=== PATIENT | female | born 1950 | race Caucasian/White ===

== ENCOUNTER 2022-08-27 14:01 | Inpatient (IN) ==
[2022-08-27] MEDS ORDERED: dilTIAZem HCl 5 MG/ML 5 ML VIAL IV STA (14:12)
[2022-08-27] MEDS ORDERED: STAT IV Infusion **Titration per Protocol STA ×2 (14:13→19:41)
[2022-08-27] MEDS ORDERED: dilTIAZem HCL 125 MG in DEXTROSE 5% 100 ML IV SCH ×2 (14:15→19:41)
--- NOTE | 2022-08-27 14:37 | XRay Report ---
XR chest 1V portable HISTORY: 71 years-old Female Dysrhythmia acute chest pain COMPARISON: None TECHNIQUE: Portable AP view of the chest FINDINGS: Cardiac silhouette is enlarged. Left atrial appendage occlusion device. No pneumothorax, pleural effu sedrick, airspace consolidation or overt pulmonary edema. Ill-defined opacity of the left suprahilar patel g is likely secondary to summation density. Degenerative changes of the shoulders and spine. Surgical clips project over the abdominal left upper quadrant. IMPRESSION: No acute process. ACT 112: Negative or not required by law. The above report was generated using voice recognition software. It may contain grammatical, syntax o r spelling errors. Electronically signed by: Brendan Looney M.D. 08/27/2022 2:36 PM
[2022-08-27 14:50] LABS: Basophils # (auto) 0.01 K/uL (0-0.2); Basophils % (auto) 0.2 %; Eosinophils # (auto) 0.01 K/uL (0-0.50); Eosinophils % (auto) 0.2 %; Hematocrit (blood only) 36.1 % (34.1-44.9); Hemoglobin 11.6 g/dl (12.0-16.0); Immature Granulocytes # (auto) 0.01 K/uL (0.00-0.02); Immature Granulocytes % (auto) 0.2 %; Lymphocytes % (auto) 15.4 %; Mean Corpuscular Hgb Conc 32.1 g/dL (32.0-36.0); Mean Corpuscular Volume 96.5 fL (80.0-100.0); Mean Platelet Volume 10.4 fL (9.4-12.3); Monocytes # (auto) 0.13 K/uL (0.24-0.82); Monocytes % (auto) 2.9 %; Neutrophils # (auto) 3.69 K/uL (1.4-6.5); Neutrophils % (auto) 81.1 %; Platelet Count 197 K/uL (130-400); RDW Coefficient of Variation 13.7 % (11.5-14.5); RDW Standard Deviation 48.6 fL (36.4-46.3); Red Blood Count 3.74 M/uL (3.93-5.22); White Blood Count 4.55 K/ul (4.8-10.8)
[2022-08-27 15:03] LABS: Partial Thromboplastin Time 27.3 Seconds (21.0-31.0); Prothrombin Time 10.4 Seconds (9.0-12.0)
[2022-08-27 15:08] LABS: Albumin Globulin Ratio 1.7 (0.9-2); Albumin Level 3.8 gm/dl (3.4-5.0); BUN Creatinine Ratio 17.6 (10-20); Bilirubin,Total 0.3 mg/dl (0.2-1.0); Calcium 8.9 mg/dl (8.5-10.1); Creatinine Clr Calc Pharmacy 72.3 ml/min; Est GFR (African American) 79.9 ml/min; Est GFR (Non-African American) 68.9 ml/min; Globulin 2.3 gm/dl (2.5-4.0); Magnesium 1.9 mg/dl (1.7-2.4); Potassium 4.2 mmol/L (3.5-5.1); Total Protein 6.1 gm/dl (6.0-8.3)
--- NOTE | 2022-08-27 15:10 | Emergency Department Note ---
Impression & Plan Atrial fibrillation with rapid ventricular response, Light-headed feeling, History of coronary artery disease, Presence of Watchman left atrial appendage closure device ED Provider Note Provider: Mejia Noland MD DATE OF SERVICE: 08/27/2022 CHIEF COMPLAINT: A. fib HISTORY OF PRESENT ILLNESS: Patient is a 71-year-old female history of atrial fibrillation status post watchman procedure as well as cardiac disease with prior stenting most care performed at [facility] presenting here today from the [facility] in [facility]. Patient was undergoing an elective hemorrhoidectomy procedure under conscious sedation but no LMA or intubation this afternoon. Patient reportedly had her morning metoprolol is normal and is not on anticoagulation as she had a prior watchman procedure. Anesthesia called me afterwards and informed me the patient was coming here as she had refractory A. fib. Initially showed up in normal sinus rhythm but after the procedure and recovery developed rapid response A. fib. Received several doses of esmolol as well as additional IV metoprolol there without improvement and thus they discussed with the cardiology office in [place] was sent here for further care. Patient states that she not having significant chest pain. She states she does feel a bit winded and lightheaded when she tries to stand. Arrives with a rapid heart rate here in atrial fibrillation. Patient denies significant abdominal pain or nauseousness at this point. REVIEW OF SYSTEMS: A total of 10 review of systems was obtained and negative except as stated above in the HPI. PAST MEDICAL HISTORY: As noted above MEDICATIONS: Reviewed home medication list includes metoprolol twice daily SOCIAL HISTORY: Lives in [facility] at home, former smoker PHYSICAL EXAM: GENERAL: alert and oriented in no acute distress on stretcher Head: normocephalic and atraumatic EYES: No injection, discharge or icterus. NECK: Trachea midline. Supple. ENT: Mucous membranes pink and moist. LUNGS: Airway patent. No retractions. Breath sounds clear HEART: Irregular regular tachycardic rate and rhythm. No chest wall tenderness ABDOMEN: Soft and non-tender, without guarding or rebound. SKIN: Acyanotic, warm, dry, without rashes EXTREMITIES: Without swelling, tenderness or deformity NEUROLOGICAL: No focal deficits. No aphasia. No facial droop or slurred speech. Normal strength and tone in the extremities. Sensation to gross touch normal. EK beats from atrial fibrillation with rapid ventricular response, left bundle branch block present. No clear acute ST segment elevation with left axis. QTC 523. CONTINUOUS CARDIAC MONITORING: was ordered and showed a heart rate of 80s-130s bpm in atrial fibrillation Patient's laboratory studies and imaging reviewed. Differential includes Premature contractions, electrolyte abnormality, cardiac dysrhythmia, thyroid dysfunction, pulmonary embolism, infection, gastrointestinal, as well as other pathologies. IMPRESSION/MEDICAL DECISION MAKING: Patient with symptomatic rapid strep ventricular sponsor atrial fibrillation. Prior watchman as well as CAD history. Received several doses of esmolol as well as IV metoprolol prior to transfer in the postrecovery area after procedure today. Likely stress physiologically from the anesthesia procedure induced this. Has prior watchman so not anticoagulated. Initially here was given a bolus and started on a diltiazem drip for rate control. Some transient hypotension but rate gradually began to improve some while at rest. Chest x-ray was unremarkable without evidence of pulmonary edema. Not hypoxic. Blood work with minimal anemia and slight leukopenia. Again not having active chest pain and doubt ACS. No significant electrolyte abnormalities or renal dys function noted on blood work. Troponin returns not elevated. Attempted to stand at bedside and patient became lightheaded and dizzy and more tachycardic. Continues to have issues with bouts of tachycardia on the diltiazem drip as such discussed with her and daughter further observation overnight for rate control. Probably some component of the A. fib as well as postanesthesia causing symptoms. Patient and daughter are in agreement this plan. DIAGNOSIS: Atrial fibrillation with ventricular response, lightheadedness DISPOSITION: Hospitalist will evaluate Patient was agreeable with this plan. Critical Care I have personally spent 32 minutes of critical care time in the direct management of this patient. This includes bedside care, interpretation of diagnostic studies, and testing, discussion with consultants, patient, and family members, and other required patient management activities. These 32 minutes is in excess of all separately billable procedures. Past Med/Surg History Medical History (Updated 08/27/22 @ 15:24 by Mejia Noland M.D.) Acid reflux Afib DX 2 YR AGO - NO HX CARDIOVERSION Anxiety and depression Arthritis Diarrhea REASON FOR UPCOMING PROCEDURES Encounter for pre-operative examination Hiatal hernia History of blood clots S/P HEART CATH - RIGHT ARM History of colon polyps BENIGN History of GI bleed 2 YR AGO History of heart attack 2 YR AGO - STENT X1 History of kidney stones Nausea REASON FOR UPCOMING PROCEDURES Orthostatic hypotension Stomach pain REASON FOR UPCOMING PROCEDURES Stomach ulcer Tic TIC - LIPS GO FUNNY...FOLLOWS NEURO ALTOONA ? NAME, REASON FOR PRIMIDONE Surgical History History of cardiac cath 2 YR AGO, [place]...STENT X1 ALTOONA History of cholecystectomy History of colonoscopy MOST RECENT WAS TOLD COULD NOT GET UP INTO THE LEFT SIDE (ALTOONA 2 YR AGO) History of gastric surgery GASTRIC SLEEVE History of hysterectomy History of right hip replacement History of surgery WATCHMANS DEVICE PLACEMENT History of surgery FOR HIATAL HERNIA REPAIR History of total right knee replacement Family History Daughter Family history of colon cancer Grandmother Family history of colon cancer Social History Smoking Status: Former smoker Hx Alcohol Use: No Preferred Language: Latvian Communication Ability: Effective Welfare Centre Manager Required: No Beliefs That Will Affect Care: None Current Living Situation: Spouse Current Living Situation Comment: , [facility] GRANDSON Feels Safe at Home: Yes Assistive Devices: Cane, Denture - Upper and Other Allergies Allergies Allergy/AdvReac Type Severity Reaction Status Date / Time codeine Allergy Unknown HEART RACES Verified 04/14/22 08:41 erythromycin base Allergy Unknown Hives Verified 04/14/22 08:41 nitrofurantoin Allergy Unknown ? HIVES Verified 04/14/22 08:41 Home Meds Home Medications Medication Instructions Recorded Confirmed aspirin 81 mg tablet,delayed 81 mg PO QAM 03/18/22 04/14/22 release escitalopram oxalate 20 mg tablet 20 mg PO QAM 03/18/22 04/14/22 (Lexapro) metoprolol tartrate 25 mg tablet 25 mg PO BID 03/18/22 04/14/22 midodrine 5 mg tablet 5 mg PO BID 03/18/22 04/14/22 ondansetron 4 mg disintegrating 4 mg PO UD PRN N/V 03/18/22 04/14/22 tablet primidone 50 mg tablet 50 mg PO BID 03/18/22 04/14/22 rosuvastatin 10 mg tablet 10 mg PO QAM 03/18/22 04/14/22 famotidine 20 mg tablet (Pepcid) 20 mg PO DAILY 04/14/22 04/14/22 lorazepam 0.5 mg tablet 0.5 mg PO TID PRN Anxiety 04/14/22 04/14/22 omeprazole 40 mg capsule,delayed 40 mg PO DAILY 04/14/22 04/14/22 release Results & Data (ED) Vital Signs Vital Signs - 24 hr 08/27/22 14:13 08/27/22 14:13 08/27/22 14:13 Temperature 36.9 C 36.9 C Temperature Source Oral Oral Pulse Rate 113 H Pulse Rate [Finger] 113 H Pulse Rhythm Regular Pulse Rhythm [Finger] Regular Respiratory Rate 18 18 Respiratory Effort / Characteristics Non-Labored Non-Labored Respiratory Depth Normal Normal Respiratory Pattern Regular Regular Blood Pressure 124/88 Blood Pressure [Right Arm] 124/88 Blood Pressure Mean 100 Blood Pressure Mean [Right Arm] 100 Blood Pressure Position Sitting Pulse Oximetry 95 95 Oxygen Delivery Method Room Air Room Air Room Air Sepsis Recent Fever Within 48 Hours No Sepsis New/Unexplained Change in Mental Status No Sepsis Action Taken by Nursing No Action Required Laboratory Data Result diagrams: 08/27/22 14:31 08/27/22 14:31 Lab Results 08/27/22 08/27/22 08/27/22 Range/Units 14:31 14:31 14:31 WBC 4.55 L (4.8-10.8) K/ul RBC 3.74 L (3.93-5.22) M/uL Hgb 11.6 L (12.0-16.0) g/dl Hct 36.1 (34.1-44.9) % MCV 96.5 (80.0-100.0) fL MCH 31.0 (25.0-34.0) pg MCHC 32.1 (32.0-36.0) g/dL RDW Std Deviation 48.6 H (36.4-46.3) fL RDW Coeff of John 13.7 (11.5-14.5) % Plt Count 197 (130-400) K/uL MPV 10.4 (9.4-12.3) fL Immature Gran % (Auto) 0.2 % Neut % (Auto) 81.1 % Lymph % (Auto) 15.4 % Smyth % (Auto) 2.9 % Eos % (Auto) 0.2 % Baso % (Auto) 0.2 % Neut # (Auto) 3.69 (1.4-6.5) K/uL Lymph # (Auto) 0.70 L (1.2-3.4) K/uL Smyth # (Auto) 0.13 L (0.24-0.82) K/uL Eos # (Auto) 0.01 (0-0.50) K/uL Baso # (Auto) 0.01 (0-0.2) K/uL Immature Gran # (Auto) 0.01 (0.00-0.02) K/uL PT 10.4 (9.0-12.0) Seconds INR 1.0 (0.9-1.1) APTT 27.3 (21.0-31.0) Seconds PTT Ratio 1.0 Sodium 139 (136-145) mmol/L Potassium 4.2 (3.5-5.1) mmol/L Chloride 107 (98-107) mmol/L Carbon Dioxide 25 (21-32) mmol/L Anion Gap 7 (3-11) BUN 15 (6-23) mg/dl Creatinine 0.85 (0.6-1.2) mg/dl Est Cr Clr Drug Dosing 72.3 ml/min Est GFR ( Amer) 79.9 ml/min Est GFR (Non-Af Amer) 68.9 ml/min BUN/Creatinine Ratio 17.6 (10-20) Glucose 205 H (70-99(Fasting)) mg/dl Calcium 8.9 (8.5-10.1) mg/dl Magnesium 1.9 (1.7-2.4) mg/dl Total Bilirubin 0.3 (0.2-1.0) mg/dl AST 21 (13-39) U/L ALT 16 (7-52) U/L Alkaline Phosphatase 87 (34-104) U/L Troponin I High Sens 10.1 (0-14) pg/ml Total Protein 6.1 (6.0-8.3) gm/dl Albumin 3.8 (3.4-5.0) gm/dl Globulin 2.3 L (2.5-4.0) gm/dl Albumin/Globulin Ratio 1.7 (0.9-2) TSH (0.300-4.500) uIu/ml SARS-CoV-2, RNA, NAAT (NEGATIVE) 08/27/22 08/27/22 Range/Units 14:31 14:40 WBC (4.8-10.8) K/ul RBC (3.93-5.22) M/uL Hgb (12.0-16.0) g/dl Hct (34.1-44.9) % MCV (80.0-100.0) fL MCH (25.0-34.0) pg MCHC (32.0-36.0) g/dL RDW Std Deviation (36.4-46.3) fL RDW Coeff of John (11.5-14.5) % Plt Count (130-400) K/uL MPV (9.4-12.3) fL Immature Gran % (Auto) % Neut % (Auto) % Lymph % (Auto) % Smyth % (Auto) % Eos % (Auto) % Baso % (Auto) % Neut # (Auto) (1.4-6.5) K/uL Lymph # (Auto) (1.2-3.4) K/uL Smyth # (Auto) (0.24-0.82) K/uL Eos # (Auto) (0-0.50) K/uL Baso # (Auto) (0-0.2) K/uL Immature Gran # (Auto) (0.00-0.02) K/uL PT (9.0-12.0) Seconds INR (0.9-1.1) APTT (21.0-31.0) Seconds PTT Ratio Sodium (136-145) mmol/L Potassium (3.5-5.1) mmol/L Chloride (98-107) mmol/L Carbon Dioxide (21-32) mmol/L Anion Gap (3-11) BUN (6-23) mg/dl Creatinine (0.6-1.2) mg/dl Est Cr Clr Drug Dosing ml/min Est GFR ( Amer) ml/min Est GFR (Non-Af Amer) ml/min BUN/Creatinine Ratio (10-20) Glucose (70-99(Fasting)) mg/dl Calcium (8.5-10.1) mg/dl Magnesium (1.7-2.4) mg/dl Total Bilirubin (0.2-1.0) mg/dl AST (13-39) U/L ALT (7-52) U/L Alkaline Phosphatase (34-104) U/L Troponin I High Sens (0-14) pg/ml Total Protein (6.0-8.3) gm/dl Albumin (3.4-5.0) gm/dl Globulin (2.5-4.0) gm/dl Albumin/Globulin Ratio (0.9-2) TSH 0.810 (0.300-4.500) uIu/ml SARS-CoV-2, RNA, NAAT NEGATIVE (NEGATIVE) Administered Medications Diltiazem HCl 125 mg/ Dextrose 125 mls @ 5 mls/hr IV .Q24H [facility]; Protocol Stop: 09/26/22 14:14 Last Admin: 08/27/22 14:26 Dose: 5 mg/hr, 5 mls/hr Documented By: TASHIA Co-signed By: CRISTY Discontinued Medications Diltiazem HCl (Diltiazem Hcl 5 Mg/Ml 5 Ml Vial) 10 mg IV NOW STA Stop: 08/27/22 14:13 Last Admin: 08/27/22 14:24 Dose: 10 mg Documented By: TASHIA Co-signed By: HIRO Imaging Data Radiologist's Impression: Chest X-Ray 08/27/22 14:13 XR chest 1V portable HISTORY: 71 years-old Female Dysrhythmia acute chest pain COMPARISON: None TECHNIQUE: Portable AP view of the chest FINDINGS: Cardiac silhouette is enlarged. Left atrial appendage occlusion device. No pneumothorax, pleural effusion, airspace consolidation or overt pulmonary edema. Ill-defined opacity of the left suprahilar lung is likely secondary to summation density. Degenerative changes of the shoulders and spine. Surgical clips project over the abdominal left upper quadrant. IMPRESSION: No acute process. ACT 112: Negative or not required by law. The above report was generated using voice recognition software. It may contain grammatical, syntax or spelling errors. Electronically signed by: Brendan Looney M.D. 08/27/2022 2:36 PM Discharge Plan Visit Data Chief Complaint: Cardiac Assessment ED Provider: Mejia Noland Discharge Problem: Atrial fibrillation with rapid ventricular response, Light-headed feeling, History of coronary artery disease, Presence of Watchman left atrial appendage closure device Patient Disposition: Being Evaluated by Hospitalist Forms Stand Alone Forms: My [facility] Prescriptions Prescriptions: No Action primidone 50 mg Tablet 50 mg PO BID midodrine 5 mg Tablet 5 mg PO BID aspirin 81 mg Tablet,Delayed Release (Dr/Ec) 81 mg PO QAM ondansetron 4 mg Tablet,Disintegrating 4 mg PO UD PRN (Reason: N/V) escitalopram oxalate [Lexapro] 20 mg Tablet 20 mg PO QAM rosuvastatin 10 mg Tablet 10 mg PO QAM metoprolol tartrate 25 mg Tablet 25 mg PO BID omeprazole 40 mg Capsule,Delayed Release(Dr/Ec) 40 mg PO DAILY famotidine [Pepcid] 20 mg Tablet 20 mg PO DAILY lorazepam 0.5 mg Tablet 0.5 mg PO TID PRN (Reason: Anxiety) Referrals Referrals: PCP,NO [Physician] -
[2022-08-27 15:17] LABS: Troponin I High Sensitivity 10.1 pg/ml (0-14)
[2022-08-27] MEDS ORDERED: LORazepam 0.5 MG TAB PO PRN (16:34)
--- NOTE | 2022-08-27 16:40 | History & Physical Report ---
Date of Service August 27, 2022 Assessment & Plan (1) Atrial fibrillation with rapid ventricular response: Plan: 71 year old female with history of CAD, A fib s/p Watchman Device, follows with [facility], presenting with A fib in RVR after elective outpatient hemorrhoidectomy procedure. A FIB IN RVR HISTORY OF CHRONIC A FIB, S/P WATCHMAN DEVICE HISTORY OF CAD occurred post procedure- elective hemorrhoidectomy usually on Metoprolol 25mg BID, ASA 81mg po daily electrolytes, TSH ok continue Diltiazem drip continue usual Metoprolol 25mg po BID (with holding parameters), ASA 81mg po daily Echo NPO post midnight Cardiology consulted MDD hold Lexapro for Prolonged qtc 523 repeat EKG in AM continue Primidone, Ativan CHRISSY will verify if patient uses CPAP HISTORY OF HYPOTENSION on Midodrine DVT prophylaxis SCDs for now Full Code Disposition anticipate d/c home when medically stable History of Present Illness Chief Complaint: A fib RVR Primary Care Provider: Júnior Gifford MD 71 year old female with history of CAD, A fib s/p Watchman Device, follows with [facility], presenting with A fib in RVR after elective outpatient hemorrhoidectomy procedure. Patient was in SR before the start of the procedure. Conscious sedation was performed. After the procedure, patient was noted to be in A fib RVR. Esmolol and Metoprolol IV given with persistent A fib. Patient transferred to the ER. At the ER, patient was given Diltiazem drip. HR improved from 133 to 99. Hospitalist consulted for admission. On exam, patient seen resting in bed, comfortable, not in distress. no chest pain, dyspnea, palpitations, dizziness no bleeding per rectum no nausea/vomiting, abd pain, feve/chills no headache, dizziness no other symptoms Allergies Allergy/AdvReac Type Severity Reaction Status Date / Time oxycodone Allergy Intermediate Unknown Verified 08/28/22 08:34 codeine Allergy Unknown HEART RACES Verified 08/27/22 19:17 erythromycin base Allergy Unknown Hives Verified 08/27/22 19:17 nitrofurantoin Allergy Unknown ? HIVES Verified 08/27/22 19:17 KERRY Inhibitors AdvReac Unknown Verified 08/27/22 19:18 Home Medications Medication Instructions Recorded Confirmed Type aspirin 81 mg tablet,delayed 81 mg PO QAM 03/18/22 08/27/22 History release metoprolol tartrate 25 mg tablet 25 mg PO BID 03/18/22 08/27/22 History midodrine 5 mg tablet 5 mg PO BID 03/18/22 08/27/22 History primidone 50 mg tablet 50 mg PO BID 03/18/22 08/27/22 History rosuvastatin 10 mg tablet 10 mg PO QAM 03/18/22 08/27/22 History famotidine 20 mg tablet (Pepcid) 20 mg PO HS 04/14/22 08/27/22 History lorazepam 0.5 mg tablet 0.5 mg PO TID 04/14/22 08/27/22 History omeprazole 40 mg capsule,delayed 40 mg PO DAILY 04/14/22 08/27/22 History release acetaminophen 500 mg tablet 500 - 1,000 mg PO Q6H PRN Pain 08/27/22 08/27/22 History (Tylenol Extra Strength) ammonium lactate 12 % topical cream 1 applic topical DIRECTED 08/27/22 08/27/22 History buspirone 10 mg tablet 10 mg PO DIRECTED 08/27/22 08/27/22 History calcium citrate 315 mg-vitamin D3 1 tab PO DAILY 08/27/22 08/27/22 History 5 mcg (200 unit) tablet (Calcium Citrate + D) cholecalciferol (vitamin D3) 25 25 mcg PO DAILY 08/27/22 08/27/22 History mcg (1,000 unit) tablet (Vitamin D3) cholestyramine (with sugar) 4 gram 1 ea PO BID 08/27/22 08/27/22 History powder for susp in a packet cyanocobalamin (vitamin B-12) 1,000 mcg IM MO 08/27/22 08/27/22 History 1,000 mcg/mL injection solution escitalopram oxalate 10 mg tablet 20 mg PO DAILY 08/27/22 08/27/22 History (Lexapro) ferrous sulfate 325 mg (65 mg 325 mg PO DAILY 08/27/22 08/27/22 History iron) tablet (Iron (ferrous sulfate)) ondansetron HCl 4 mg tablet 4 mg PO TID PRN Nausea 08/27/22 08/27/22 History oxybutynin chloride 10 mg 10 mg PO HS 08/27/22 08/27/22 History tablet,extended release 24 hr oxycodone-acetaminophen 5 mg-325 1 tab PO Q6H PRN Pain 08/27/22 08/27/22 History mg tablet (Percocet) promethazine 25 mg tablet 25 mg PO Q6H PRN Nausea 08/27/22 08/27/22 History Past Med/Surg History Medical History Acid reflux Afib DX 2 YR AGO - NO HX CARDIOVERSION Anxiety and depression Arthritis Diarrhea REASON FOR UPCOMING PROCEDURES Encounter for pre-operative examination Hiatal hernia History of blood clots S/P HEART CATH - RIGHT ARM History of colon polyps BENIGN History of GI bleed 2 YR AGO History of heart attack 2 YR AGO - STENT X1 History of kidney stones Nausea REASON FOR UPCOMING PROCEDURES Orthostatic hypotension Stomach pain REASON FOR UPCOMING PROCEDURES Stomach ulcer Tic TIC - LIPS GO FUNNY...FOLLOWS NEURO ALTOONA ? NAME, REASON FOR PRIMIDONE Surgical History History of cardiac cath 2 YR AGO, [place]...STENT X1 ALTOONA History of cholecystectomy History of colonoscopy MOST RECENT WAS TOLD COULD NOT GET UP INTO THE LEFT SIDE (ALTOONA 2 YR AGO) History of gastric surgery GASTRIC SLEEVE History of hysterectomy History of right hip replacement History of surgery WATCHMANS DEVICE PLACEMENT History of surgery FOR HIATAL HERNIA REPAIR History of total right knee replacement Family History Daughter Family history of colon cancer Grandmother Family history of colon cancer Social History Smoking Status: Never smoker Hx Alcohol Use: No Hx Substance Use: Yes Substance Use Type Other:: medical marijuana Preferred Language: Gabonese Communication Ability: Effective Mine Inspector Required: No Beliefs That Will Affect Care: None Current Living Situation: Spouse and Family Current Living Situation Comment: lives with and grandson Other Information That Helps Us Care for You: No Feels Safe at Home: Yes Safety Concerns: Feels Safe At This Time Assistive Devices: Denture - Upper and Walker Review of Systems Review of Systems: all noted and negative except for above Physical Exam Physical Exam: General- oriented x 3, not in distress, speaks in sentences with no effort or accessory muscle use Head- atraumatic Eyes- PERRL, EOMI, anicteric ENT- oropharynx clear Neck- supple, no JVD, no adenopathy, no thyromegaly; carotids +2/2, no bruits appreciated Lungs- clear to auscultation bilaterally, no rales/wheezes Heart- HR 90s, Irregularly irregular; no murmur, no gallop, no rub appreciated Abdomen- normal bowel sounds, nondistended, soft, nontender, no masses or hepatosplenomegaly Extremities- no pretibial edema, no calf tenderness; peripheral pulses intact Neuro- alert, oriented x 3; CN 2-12 grossly intact; motor 5/5 bilaterally;sensation 100% on all extremities; no other gross focal neurologic deficits Skin- warm & dry Results & Data Results & Data ([facility]) Vital Signs (Past 12 Hours) Vital Signs Temp Pulse Pulse Resp BP BP Pulse Ox 08/27/22 16:00 99 H 17 101/63 96 08/27/22 14:13 36.9 C 113 H 18 124/88 95 08/27/22 14:13 08/27/22 14:13 36.9 C 113 H 18 124/88 95 O2 Del Method 08/27/22 16:00 Room Air 08/27/22 14:13 Room Air 08/27/22 14:13 Room Air 08/27/22 14:13 Room Air all noted and reviewed including below Code Status & VTE Plan VTE Prophylaxis Plan VTE Prophylaxis will be ordered: Yes
--- NOTE | 2022-08-27 18:25 | Electrocardiogram Report ---
Test Reason : Blood Pressure : / mmHG Vent. Rate : 133 BPM Atrial Rate : 141 BPM P-R Int : 000 ms QRS Dur : 136 ms QT Int : 352 ms P-R-T Axes : 000 -37 157 degrees QTc Int : 523 ms Atrial fibrillation with rapid ventricular response Left axis deviation Left bundle branch block Abnormal ECG When compared with ECG of 27-MAY-2004 11:42, Atrial fibrillation has replaced Sinus rhythm Vent. rate has increased BY 56 BPM Confirmed by Michael Sanchez ([id number]) on 08/27/2022 6:25:11 PM Referred By: Confirmed By:Huey Sanchez
[2022-08-27] MEDS ORDERED: oxyCODONE/ACETAMINOPHEN 5mg/325mg TAB PO PRN (19:41)
[2022-08-27] MEDS ORDERED: ACETAMINOPHEN 325 MG TAB PO PRN (19:41)
[2022-08-27] MEDS ORDERED: PROMETHAZINE HCL 12.5 MG in SODIUM CHLORIDE 0.9% 50 ML IV PRN (19:41)
[2022-08-27] MEDS ORDERED: INFLUENZA VACCINE HIGH DOSE PF 65+ 0.7 ML SYR IM ONE (20:03)
[2022-08-27] MEDS ORDERED: SODIUM CHLORIDE 0.9% 500 ML IV ONE (20:50)
[2022-08-27] MEDS: MIDODRINE HCL 2.5 MG TAB PO SCH (20:54)
[2022-08-27] MEDS: PRIMIDONE 50 MG TAB PO SCH (20:54)
[2022-08-27] MEDS: METOPROLOL TARTRATE 25 MG TAB PO SCH (20:54)
[2022-08-27] MEDS ORDERED: MAGNESIUM SULFATE / D5W 1 GM/100 ML BAG IV ONE (21:15)
[2022-08-27] MEDS ORDERED: LORATADINE 10 MG TAB PO ONE (22:56)
[2022-08-28 06:06] LABS: Basophils # (auto) 0.01 K/uL (0-0.2); Basophils % (auto) 0.2 %; Hematocrit (blood only) 31.3 % (34.1-44.9); Hemoglobin 10.1 g/dl (12.0-16.0); Immature Granulocytes # (auto) 0.02 K/uL (0.00-0.02); Immature Granulocytes % (auto) 0.3 %; Lymphocytes # (auto) 1.04 K/uL (1.2-3.4); Lymphocytes % (auto) 15.7 %; Mean Corpuscular Hemoglobin 30.9 pg (25.0-34.0); Mean Corpuscular Hgb Conc 32.3 g/dL (32.0-36.0); Mean Corpuscular Volume 95.7 fL (80.0-100.0); Mean Platelet Volume 10.5 fL (9.4-12.3); Monocytes % (auto) 7.6 %; Neutrophils # (auto) 5.05 K/uL (1.4-6.5); Neutrophils % (auto) 76.2 %; Platelet Count 185 K/uL (130-400); RDW Coefficient of Variation 13.6 % (11.5-14.5); RDW Standard Deviation 48.4 fL (36.4-46.3); Red Blood Count 3.27 M/uL (3.93-5.22); White Blood Count 6.62 K/ul (4.8-10.8)
[2022-08-28 07:14] LABS: Calcium 8.4 mg/dl (8.5-10.1); Creatinine Clr Calc Pharmacy 68.6 ml/min; Est GFR (African American) 75.6 ml/min; Est GFR (Non-African American) 65.2 ml/min; Magnesium 2.1 mg/dl (1.7-2.4); Potassium 4.3 mmol/L (3.5-5.1)
[2022-08-28] MEDS: PRIMIDONE 50 MG TAB PO SCH ×2 (08:11→20:45)
[2022-08-28] MEDS: MIDODRINE HCL 2.5 MG TAB PO SCH ×2 (08:11→20:45)
[2022-08-28] MEDS: METOPROLOL TARTRATE 25 MG TAB PO SCH ×2 (08:12→20:45)
[2022-08-28] MEDS: FAMOTIDINE 20 MG TAB PO SCH (08:12)
[2022-08-28] MEDS: PANTOprazole 40 MG TAB PO SCH (08:12)
[2022-08-28] MEDS: ASPIRIN 81 MG ECTAB PO SCH (08:12)
[2022-08-28] MEDS: ROSUVASTATIN CALCIUM 10 MG TAB PO SCH (08:12)
[2022-08-28] MEDS: POLYETHYLENE (MIRALAX) 17 GM PACK PO SCH (08:13)
[2022-08-28 08:34] LABS: Estimated Average Glucose 117 mg/dl; Hemoglobin A1C 5.7 % (4.5-5.6)
[2022-08-28] MEDS ORDERED: PERFLUTREN LIPID MICROSPHERE (DEFINITY) IV ONE (09:03)
--- NOTE | 2022-08-28 11:22 | Cardiology Consultation ---
Date of Consultation August 28, 2022 Assessment & Plan (1) Atrial fibrillation with rapid ventricular response: (2) History of coronary artery disease: (3) Presence of Watchman left atrial appendage closure device: Plan The patient is clinically stable. As mentioned, she converted to normal sinus rhythm early this morning. I do not believe any additional cardiac work-up is indicated at this time. From a cardiac standpoint I believe she can be discharged to outpatient follow-up. She is a little anemic with a hemoglobin of 10. This may be related to her hemorrhoids. She is not anticoagulated and has a watchman device in place. We would be happy to follow her clinically through [facility] after discharge. History of Present Illness Attending Physician: Blanco Peguero MD History of Present Illness This is a 71-year-old female who has received most of her cardiac care through [facility]. She has a previous history of coronary artery disease with a stent placed in the PDA in 2019. She also has a history of paroxysmal atrial fibrillation. She had been anticoagulated and then developed a GI bleed. The patient then received a watchman left atrial appendage closure device. She was at [facility] having hemorrhoid surgery and developed atrial fibrillation with RVR. She was transferred to [place] and admitted. Earlier this morning she converted to sinus rhythm. She has no ongoing complaints. Allergies Allergy/AdvReac Type Severity Reaction Status Date / Time oxycodone Allergy Intermediate Unknown Verified 08/28/22 08:34 codeine Allergy Unknown HEART RACES Verified 08/27/22 19:17 erythromycin base Allergy Unknown Hives Verified 08/27/22 19:17 nitrofurantoin Allergy Unknown ? HIVES Verified 08/27/22 19:17 KERRY Inhibitors AdvReac Unknown Verified 08/27/22 19:18 Home Medications Medication Instructions Recorded Confirmed Type aspirin 81 mg tablet,delayed 81 mg PO QAM 03/18/22 08/27/22 History release metoprolol tartrate 25 mg tablet 25 mg PO BID 03/18/22 08/27/22 History midodrine 5 mg tablet 5 mg PO BID 03/18/22 08/27/22 History primidone 50 mg tablet 50 mg PO BID 03/18/22 08/27/22 History rosuvastatin 10 mg tablet 10 mg PO QAM 03/18/22 08/27/22 History famotidine 20 mg tablet (Pepcid) 20 mg PO HS 04/14/22 08/27/22 History lorazepam 0.5 mg tablet 0.5 mg PO TID 04/14/22 08/27/22 History omeprazole 40 mg capsule,delayed 40 mg PO DAILY 04/14/22 08/27/22 History release acetaminophen 500 mg tablet 500 - 1,000 mg PO Q6H PRN Pain 08/27/22 08/27/22 History (Tylenol Extra Strength) ammonium lactate 12 % topical cream 1 applic topical DIRECTED 08/27/22 08/27/22 History buspirone 10 mg tablet 10 mg PO DIRECTED 08/27/22 08/27/22 History calcium citrate 315 mg-vitamin D3 1 tab PO DAILY 08/27/22 08/27/22 History 5 mcg (200 unit) tablet (Calcium Citrate + D) cholecalciferol (vitamin D3) 25 25 mcg PO DAILY 08/27/22 08/27/22 History mcg (1,000 unit) tablet (Vitamin D3) cholestyramine (with sugar) 4 gram 1 ea PO BID 08/27/22 08/27/22 History powder for susp in a packet cyanocobalamin (vitamin B-12) 1,000 mcg IM MO 08/27/22 08/27/22 History 1,000 mcg/mL injection solution escitalopram oxalate 10 mg tablet 20 mg PO DAILY 08/27/22 08/27/22 History (Lexapro) ferrous sulfate 325 mg (65 mg 325 mg PO DAILY 08/27/22 08/27/22 History iron) tablet (Iron (ferrous sulfate)) ondansetron HCl 4 mg tablet 4 mg PO TID PRN Nausea 08/27/22 08/27/22 History oxybutynin chloride 10 mg 10 mg PO HS 08/27/22 08/27/22 History tablet,extended release 24 hr oxycodone-acetaminophen 5 mg-325 1 tab PO Q6H PRN Pain 08/27/22 08/27/22 History mg tablet (Percocet) promethazine 25 mg tablet 25 mg PO Q6H PRN Nausea 08/27/22 08/27/22 History Patient History Medical History Acid reflux Afib DX 2 YR AGO - NO HX CARDIOVERSION Anxiety and depression Arthritis Diarrhea REASON FOR UPCOMING PROCEDURES Encounter for pre-operative examination Hiatal hernia History of blood clots S/P HEART CATH - RIGHT ARM History of colon polyps BENIGN History of GI bleed 2 YR AGO History of heart attack 2 YR AGO - STENT X1 History of kidney stones Nausea REASON FOR UPCOMING PROCEDURES Orthostatic hypotension Stomach pain REASON FOR UPCOMING PROCEDURES Stomach ulcer Tic TIC - LIPS GO FUNNY...FOLLOWS NEURO [place] ? NAME, REASON FOR PRIMIDONE Surgical History History of cardiac cath 2 YR AGO, [place]...STENT X1 [place] History of cholecystectomy History of colonoscopy MOST RECENT WAS TOLD COULD NOT GET UP INTO THE LEFT SIDE ([place] 2 YR AGO) History of gastric surgery GASTRIC SLEEVE History of hysterectomy History of right hip replacement History of surgery WATCHMANS DEVICE PLACEMENT History of surgery FOR HIATAL HERNIA REPAIR History of total right knee replacement Family History Daughter Family history of colon cancer Grandmother Family history of colon cancer Social History Smoking Status: Never smoker Hx Alcohol Use: No Hx Substance Use: Yes Substance Use Type Other:: medical marijuana Preferred Language: Ukrainian Communication Ability: Effective Film Flat Inspector Required: No Beliefs That Will Affect Care: None Current Living Situation: Spouse and Family Current Living Situation Comment: lives with and grandson Other Information That Helps Us Care for You: No Feels Safe at Home: Yes Safety Concerns: Feels Safe At This Time Assistive Devices: Denture - Upper and Walker Review of Systems Review of Systems: Review of Systems: See HPI for pertinent positives. All other 10 point review of systems are negative. Physical Exam Physical Exam: General: no acute distress and stated age Head: normocephalic, no masses, lesions, tenderness or abnormalities Eyes: conjunctiva are pink and non-injected, sclera clear Neck: supple, no adenopathy, no bruits, normal jugular venous pulse, no hepatojugular reflux Chest: normal shape and normal respiratory effort Lungs: clear to auscultation and percussion Cardiac Exam: - regular rate & rhythm, no murmurs gallops or rubs - normal S1, normal S2 Pulses: 2(+) throughout Abdomen: abdomen soft, non-tender, no abnormal masses and no hepatosplenomegaly Musculoskeletal: no gait disturbance, no joint inflammation, no deforming arthritis Extremities: no edema and no cyanosis Neuro: grossly normal exam Results & Data ([facility]) Vital Signs (Past 12 Hours) Vital Signs Temp Pulse Pulse Resp BP Pulse Ox O2 Del Method 08/28/22 10:29 46 L 08/28/22 10:29 Room Air 08/28/22 07:03 36.4 C L 62 18 106/63 96 Room Air 08/28/22 03:08 36.5 C 61 16 116/63 96 Room Air Laboratory Results Laboratory Results - last 24 hr 08/27/22 08/27/22 08/27/22 14:31 14:31 14:31 WBC 4.55 L RBC 3.74 L Hgb 11.6 L Hct 36.1 MCV 96.5 MCH 31.0 MCHC 32.1 RDW Std Deviation 48.6 H RDW Coeff of John 13.7 Plt Count 197 MPV 10.4 Immature Gran % (Auto) 0.2 Neut % (Auto) 81.1 Lymph % (Auto) 15.4 Gentry % (Auto) 2.9 Eos % (Auto) 0.2 Baso % (Auto) 0.2 Neut # (Auto) 3.69 Lymph # (Auto) 0.70 L Gentry # (Auto) 0.13 L Eos # (Auto) 0.01 Baso # (Auto) 0.01 Immature Gran # (Auto) 0.01 PT 10.4 INR 1.0 APTT 27.3 PTT Ratio 1.0 Sodium 139 Potassium 4.2 Chloride 107 Carbon Dioxide 25 Anion Gap 7 BUN 15 Creatinine 0.85 Est Cr Clr Drug Dosing 72.3 Est GFR ( Amer) 79.9 Est GFR (Non-Af Amer) 68.9 BUN/Creatinine Ratio 17.6 Glucose 205 H Estimat Average Glucose Hemoglobin A1c Calcium 8.9 Magnesium 1.9 Total Bilirubin 0.3 AST 21 ALT 16 Alkaline Phosphatase 87 Troponin I High Sens 10.1 Total Protein 6.1 Albumin 3.8 Globulin 2.3 L Albumin/Globulin Ratio 1.7 TSH SARS-CoV-2, RNA, NAAT 08/27/22 08/27/22 08/28/22 14:31 14:40 05:29 WBC 6.62 RBC 3.27 L Hgb 10.1 L Hct 31.3 L MCV 95.7 MCH 30.9 MCHC 32.3 RDW Std Deviation 48.4 H RDW Coeff of John 13.6 Plt Count 185 MPV 10.5 Immature Gran % (Auto) 0.3 Neut % (Auto) 76.2 Lymph % (Auto) 15.7 Gentry % (Auto) 7.6 Eos % (Auto) 0.0 Baso % (Auto) 0.2 Neut # (Auto) 5.05 Lymph # (Auto) 1.04 L Gentry # (Auto) 0.50 Eos # (Auto) 0.00 Baso # (Auto) 0.01 Immature Gran # (Auto) 0.02 PT INR APTT PTT Ratio Sodium Potassium Chloride Carbon Dioxide Anion Gap BUN Creatinine Est Cr Clr Drug Dosing Est GFR ( Amer) Est GFR (Non-Af Amer) BUN/Creatinine Ratio Glucose Estimat Average Glucose Hemoglobin A1c Calcium Magnesium Total Bilirubin AST ALT Alkaline Phosphatase Troponin I High Sens Total Protein Albumin Globulin Albumin/Globulin Ratio TSH 0.810 SARS-CoV-2, RNA, NAAT NEGATIVE 08/28/22 08/28/22 05:29 05:29 WBC RBC Hgb Hct MCV MCH MCHC RDW Std Deviation RDW Coeff of John Plt Count MPV Immature Gran % (Auto) Neut % (Auto) Lymph % (Auto) Gentry % (Auto) Eos % (Auto) Baso % (Auto) Neut # (Auto) Lymph # (Auto) Gentry # (Auto) Eos # (Auto) Baso # (Auto) Immature Gran # (Auto) PT INR APTT PTT Ratio Sodium 138 Potassium 4.3 Chloride 107 Carbon Dioxide 25 Anion Gap 6 BUN 16 Creatinine 0.89 Est Cr Clr Drug Dosing 68.6 Est GFR ( Amer) 75.6 Est GFR (Non-Af Amer) 65.2 BUN/Creatinine Ratio 18.0 Glucose 140 H Estimat Average Glucose 117 Hemoglobin A1c 5.7 H Calcium 8.4 L Magnesium 2.1 Total Bilirubin AST ALT Alkaline Phosphatase Troponin I High Sens Total Protein Albumin Globulin Albumin/Globulin Ratio TSH SARS-CoV-2, RNA, NAAT Medications Administered Current Inpatient Medications Acetaminophen (Acetaminophen 325 Mg Tab) 650 mg PO Q4H PRN PRN Reason: Pain or Fever Stop: 09/26/22 19:40 Last Admin: 08/28/22 08:17 Dose: 650 mg Aspirin (Aspirin 81 Mg Ectab) 81 mg PO QAM [facility] Stop: 09/27/22 08:59 Last Admin: 08/28/22 08:12 Dose: 81 mg Famotidine (Famotidine 20 Mg Tab) 20 mg PO DAILY [facility] Stop: 09/27/22 08:59 Last Admin: 08/28/22 08:12 Dose: 20 mg Diltiazem HCl 125 mg/ Dextrose 125 mls @ 0 mls/hr IV .Q0M [facility]; Protocol Stop: 09/26/22 19:40 Last Titration: 08/28/22 00:41 Dose: Infused Promethazine HCl 12.5 mg/ (Sodium Chloride) 50.5 mls @ 202 mls/hr IV Q6H PRN PRN Reason: Nausea And Vomiting Stop: 09/26/22 19:40 Lorazepam (Lorazepam 0.5 Mg Tab) 0.5 mg PO TID PRN PRN Reason: Anxiety Stop: 09/26/22 16:33 Metoprolol Tartrate (Metoprolol Tartrate 25 Mg Tab) 25 mg PO BID [facility] Stop: 09/26/22 20:59 Last Admin: 08/28/22 08:12 Dose: 25 mg Midodrine (Midodrine Hcl 2.5 Mg Tab) 5 mg PO BID [facility] Stop: 09/26/22 20:59 Last Admin: 08/28/22 08:11 Dose: 5 mg Pantoprazole Sodium (Pantoprazole 40 Mg Tab) 40 mg PO DAILY [facility]; Protocol Stop: 09/27/22 08:59 Last Admin: 08/28/22 08:12 Dose: 40 mg Polyethylene Glycol (Polyethylene (Miralax) 17 Gm Pack) 17 gm PO DAILY [facility] Stop: 09/27/22 08:59 Last Admin: 08/28/22 08:13 Dose: 17 gm Primidone (Primidone 50 Mg Tab) 50 mg PO BID [facility] Stop: 09/26/22 20:59 Last Admin: 08/28/22 08:11 Dose: 50 mg Rosuvastatin Calcium (Rosuvastatin Calcium 10 Mg Tab) 10 mg PO QAM [facility] Stop: 09/27/22 08:59 Last Admin: 08/28/22 08:12 Dose: 10 mg
[2022-08-28] MEDS ORDERED: ANUSOL SUPP 1 EA PR PRN (14:01)
[2022-08-28] MEDS: ACETAMINOPHEN 500 MG TAB PO SCH ×2 (14:13→22:27)
[2022-08-28] MEDS: LORazepam 0.5 MG TAB PO SCH ×2 (14:13→20:43)
[2022-08-28] MEDS: ESCITALOPRAM OXALATE 20 MG TAB PO SCH (15:48)
--- NOTE | 2022-08-28 16:40 | Electrocardiogram Report ---
Test Reason : Blood Pressure : / mmHG Vent. Rate : 060 BPM Atrial Rate : 060 BPM P-R Int : 146 ms QRS Dur : 140 ms QT Int : 486 ms P-R-T Axes : 044 -15 178 degrees QTc Int : 486 ms Poor data quality, interpretation may be adversely affected Normal sinus rhythm Left bundle branch block Abnormal ECG When compared with ECG of 27-AUG-2022 14:05, Sinus rhythm has replaced Atrial fibrillation Vent. rate has decreased BY 73 BPM Confirmed by Domingo Jiang ([id number]) on 08/28/2022 4:39:55 PM Referred By: REFERRED SELF Confirmed By:Domingo Jiang
--- NOTE | 2022-08-28 18:15 | Hospitalist Progress Note ---
Date of Service August 28, 2022 Assessment & Plan (1) Atrial fibrillation with rapid ventricular response: Plan: 71 year old female with history of CAD, A fib s/p Watchman Device, follows with [facility], presenting with A fib in RVR after elective outpatient hemorrhoidectomy procedure. A FIB IN RVR HISTORY OF CHRONIC A FIB, S/P WATCHMAN DEVICE HISTORY OF CAD occurred post procedure- elective hemorrhoidectomy usually on Metoprolol 25mg BID, ASA 81mg po daily electrolytes, TSH ok continue Diltiazem drip continue usual Metoprolol 25mg po BID (with holding parameters) Cardizem drip ASA 81mg po daily Echo NPO post midnight Cardiology consulted 08/28 Converted to sinus rhythm overnight Cardizem drip discontinued No further medication changes per cardiology service Continue usual metoprolol, aspirin STATUS POST ELECTIVE HEMORRHOIDECTOMY No signs of bleeding Tylenol 1 g 3 times daily Developed generalized itching with Percocet, NSAIDs contraindicated secondary to history of bypass surgery, tramadol also contraindicated as patient is taking Lexapro Continue to monitor closely MDD Resume Lexapro History of tremors continue Primidone, Ativan CHRISSY will verify if patient uses CPAP HISTORY OF HYPOTENSION on Midodrine DVT prophylaxis SCDs for now Full Code Disposition anticipate d/c home tomorrow when medically stable Admission and Anticipated Discharge Date Admission Date: August 27, 2022 Subjective Follow-up for A. fib and RVR, status post elective hemorrhoidectomy, etc. Seen resting in bed, sitting up, comfortable, not in distress Good spirits Converted to sinus rhythm overnight, off Cardizem drip States that she feels fine today overall No chest pain, shortness of breath, palpitations, dizziness Still has pain over the hemorrhoidectomy site No bleeding No fevers or chills, abdominal pain, nausea vomiting Feels somewhat weak Feels somewhat anxious No other symptoms Review of Systems Review of Systems: all noted and negative except for above Physical Exam Physical Exam: General- oriented x 2, not in distress, speaks in sentences with no effort or accessory muscle use Eyes- anicteric Neck- no JVD Lungs- clear breath sounds bilaterally, no crackles or wheezing Heart- normal rate, regular rhythm; no murmurs Abdomen- normal bowel sounds, nondistended, soft, nontender Extremities- no pretibial edema, no calf tenderness Neuro- alert, oriented x 3; no gross focal neurologic deficits Skin- warm & dry Results & Data Results & Data ([facility]) Vital Signs (Past 12 Hours) Vital Signs Temp Pulse Pulse Resp BP Pulse Ox O2 Del Method 08/28/22 15:27 36.5 C 52 L 20 106/58 L 94 Room Air 08/28/22 11:37 36.4 C L 60 18 111/67 96 Room Air 08/28/22 10:29 46 L 08/28/22 10:29 Room Air 08/28/22 07:03 36.4 C L 62 18 106/63 96 Room Air all noted and reviewed including below
[2022-08-28] MEDS: HYDROCORTISONE HC 2.5% CRM 30GM TUBE EXT PRN (20:50)
[2022-08-29] MEDS: ACETAMINOPHEN 500 MG TAB PO SCH ×3 (06:00→22:14)
[2022-08-29 07:21] LABS: Basophils # (auto) 0.03 K/uL (0-0.2); Basophils % (auto) 0.5 %; Eosinophils # (auto) 0.06 K/uL (0-0.50); Eosinophils % (auto) 1.1 %; Hematocrit (blood only) 30.9 % (34.1-44.9); Hemoglobin 9.8 g/dl (12.0-16.0); Immature Granulocytes # (auto) 0.02 K/uL (0.00-0.02); Immature Granulocytes % (auto) 0.4 %; Lymphocytes # (auto) 2.58 K/uL (1.2-3.4); Lymphocytes % (auto) 47.2 %; Mean Corpuscular Hemoglobin 30.7 pg (25.0-34.0); Mean Corpuscular Hgb Conc 31.7 g/dL (32.0-36.0); Mean Corpuscular Volume 96.9 fL (80.0-100.0); Mean Platelet Volume 10.4 fL (9.4-12.3); Monocytes # (auto) 0.43 K/uL (0.24-0.82); Monocytes % (auto) 7.9 %; Neutrophils # (auto) 2.35 K/uL (1.4-6.5); Neutrophils % (auto) 42.9 %; Platelet Count 178 K/uL (130-400); RDW Standard Deviation 50.1 fL (36.4-46.3); Red Blood Count 3.19 M/uL (3.93-5.22); White Blood Count 5.47 K/ul (4.8-10.8)
[2022-08-29 07:54] LABS: BUN Creatinine Ratio 21.4 (10-20); Calcium 8.6 mg/dl (8.5-10.1); Creatinine Clr Calc Pharmacy 59.6 ml/min; Est GFR (African American) 63.3 ml/min; Est GFR (Non-African American) 54.6 ml/min; Magnesium 2.1 mg/dl (1.7-2.4); Potassium 4.5 mmol/L (3.5-5.1)
[2022-08-29] MEDS: PRIMIDONE 50 MG TAB PO SCH ×2 (08:14→20:08)
[2022-08-29] MEDS: ESCITALOPRAM OXALATE 20 MG TAB PO SCH (08:15)
[2022-08-29] MEDS: FAMOTIDINE 20 MG TAB PO SCH (08:15)
[2022-08-29] MEDS: ASPIRIN 81 MG ECTAB PO SCH (08:15)
[2022-08-29] MEDS: ROSUVASTATIN CALCIUM 10 MG TAB PO SCH (08:15)
[2022-08-29] MEDS: PANTOprazole 40 MG TAB PO SCH (08:15)
[2022-08-29] MEDS: METOPROLOL TARTRATE 25 MG TAB PO SCH ×3 (08:15→20:07)
[2022-08-29] MEDS: LORazepam 0.5 MG TAB PO SCH ×3 (08:16→20:07)
[2022-08-29] MEDS: POLYETHYLENE (MIRALAX) 17 GM PACK PO SCH (08:16)
[2022-08-29] MEDS: MIDODRINE HCL 2.5 MG TAB PO SCH ×2 (08:16→20:08)
--- NOTE | 2022-08-29 10:20 | XRay Report ---
XR chest 1V portable HISTORY: 71 years-old Female sob acute shortness of breath COMPARISON: Chest radiograph 08/27/2022 TECHNIQUE: AP view of the chest FINDINGS: Cardiac silhouette is upper limits of normal in size. Atherosclerosis of the aorta. Subsegmental left basilar atelectasis versus scarring. There is no pneumothorax, pleural effusion, airspace consolidat ion or overt pulmonary edema. Degenerative changes of the shoulders and 9. IMPRESSION: No acute process. ACT 112: Negative or not required by law. The above report was generated using voice recognition software. It may contain grammatical, syntax o r spelling errors. Electronically signed by: Brendan Looney M.D. 08/29/2022 10:18 AM
[2022-08-29] MEDS: HYDROCORTISONE HC 2.5% CRM 30GM TUBE EXT PRN ×2 (11:17→20:10)
--- NOTE | 2022-08-29 11:56 | Cardiology Progress Note ---
Date of Service August 29, 2022 Assessment & Plan (1) Atrial fibrillation with rapid ventricular response: (2) History of coronary artery disease: (3) Presence of Watchman left atrial appendage closure device: Plan The patient is maintaining sinus rhythm but through the night she did have heart rates in the 30s. I think would be best to decrease her metoprolol to 12.5 mg twice daily. The patient is anemic which may be from her hemorrhoids. May want to consider working her up for iron deficiency or just start her on a multivitamin with iron. The patient has an elderly who has Parkinson's. She is asking to stay another day just to rest before she has to go home and take care of her . I do not believe that this is unreasonable as we are adjusting medications. Admission and Anticipated Discharge Date Admission Date: August 27, 2022 Subjective The patient has no complaints today. Review of Systems Review of Systems: Review of Systems: See HPI for pertinent positives. All other 10 point review of systems are negative. Physical Exam Physical Exam: General: no acute distress and stated age Head: normocephalic, no masses, lesions, tenderness or abnormalities Eyes: conjunctiva are pink and non-injected, sclera clear Neck: supple, no adenopathy, no bruits, normal jugular venous pulse, no hepatojugular reflux Chest: normal shape and normal respiratory effort Lungs: clear to auscultation and percussion Cardiac Exam: - regular rate & rhythm, no murmurs gallops or rubs - normal S1, normal S2 Pulses: 2(+) throughout Abdomen: abdomen soft, non-tender, no abnormal masses and no hepatosplenomegaly Musculoskeletal: no gait disturbance, no joint inflammation, no deforming arthritis Extremities: no edema and no cyanosis Neuro: grossly normal exam Results & Data ([facility]) Vital Signs (Past 12 Hours) Vital Signs Temp Pulse Pulse Resp BP Pulse Ox O2 Del Method 08/29/22 10:43 44 L 08/29/22 10:43 Room Air 08/29/22 07:47 36.4 C L 50 L 18 123/69 98 Room Air 08/29/22 02:54 36.5 C 50 L 16 113/59 L 95 Laboratory Results Laboratory Results - last 24 hr 08/29/22 08/29/22 07:03 07:03 WBC 5.47 RBC 3.19 L Hgb 9.8 L Hct 30.9 L MCV 96.9 MCH 30.7 MCHC 31.7 L RDW Std Deviation 50.1 H RDW Coeff of John 14.0 Plt Count 178 MPV 10.4 Immature Gran % (Auto) 0.4 Neut % (Auto) 42.9 Lymph % (Auto) 47.2 [place] % (Auto) 7.9 Eos % (Auto) 1.1 Baso % (Auto) 0.5 Neut # (Auto) 2.35 Lymph # (Auto) 2.58 [place] # (Auto) 0.43 Eos # (Auto) 0.06 Baso # (Auto) 0.03 Immature Gran # (Auto) 0.02 Sodium 134 L Potassium 4.5 Chloride 103 Carbon Dioxide 29 Anion Gap 2 L BUN 22 Creatinine 1.03 Est Cr Clr Drug Dosing 59.6 Est GFR ( Amer) 63.3 Est GFR (Non-Af Amer) 54.6 BUN/Creatinine Ratio 21.4 H Glucose 100 H Calcium 8.6 Magnesium 2.1 Medications Administered Current Inpatient Medications Acetaminophen (Acetaminophen 500 Mg Tab) 1,000 mg PO Q8H [facility] Stop: 09/27/22 14:14 Last Admin: 08/29/22 06:00 Dose: 1,000 mg Aspirin (Aspirin 81 Mg Ectab) 81 mg PO QAM [facility] Stop: 09/27/22 08:59 Last Admin: 08/29/22 08:15 Dose: 81 mg Escitalopram Oxalate (Escitalopram Oxalate 20 Mg Tab) 20 mg PO DAILY [facility] Stop: 09/27/22 14:14 Last Admin: 08/29/22 08:15 Dose: 20 mg Famotidine (Famotidine 20 Mg Tab) 20 mg PO DAILY [facility] Stop: 09/27/22 08:59 Last Admin: 08/29/22 08:15 Dose: 20 mg Hydrocortisone (Hydrocortisone Hc 2.5% Crm 30gm Tube) 1 appln EXT BID PRN PRN Reason: Hemorrhoids Stop: 09/27/22 15:28 Last Admin: 08/29/22 11:17 Dose: 1 appln Diltiazem HCl 125 mg/ Dextrose 125 mls @ 0 mls/hr IV .Q0M [facility]; Protocol Stop: 09/26/22 19:40 Last Titration: 08/28/22 00:41 Dose: Infused Promethazine HCl 12.5 mg/ (Sodium Chloride) 50.5 mls @ 202 mls/hr IV Q6H PRN PRN Reason: Nausea And Vomiting Stop: 09/26/22 19:40 Lorazepam (Lorazepam 0.5 Mg Tab) 0.5 mg PO TID [facility] Stop: 09/27/22 13:59 Last Admin: 08/29/22 08:16 Dose: Not Given Metoprolol Tartrate (Metoprolol Tartrate 25 Mg Tab) 12.5 mg PO BID [facility] Stop: 09/28/22 20:59 Midodrine (Midodrine Hcl 2.5 Mg Tab) 5 mg PO BID [facility] Stop: 09/26/22 20:59 Last Admin: 08/29/22 08:16 Dose: 5 mg Pantoprazole Sodium (Pantoprazole 40 Mg Tab) 40 mg PO DAILY [facility]; Protocol Stop: 09/27/22 08:59 Last Admin: 08/29/22 08:15 Dose: 40 mg Phenylephrine HCl (Anusol Supp 1 Ea) 1 supp NM DAILY PRN PRN Reason: pain Stop: 09/27/22 14:14 Polyethylene Glycol (Polyethylene (Miralax) 17 Gm Pack) 17 gm PO DAILY [facility] Stop: 09/27/22 08:59 Last Admin: 08/29/22 08:16 Dose: 17 gm Primidone (Primidone 50 Mg Tab) 50 mg PO BID [facility] Stop: 09/26/22 20:59 Last Admin: 08/29/22 08:14 Dose: 50 mg Rosuvastatin Calcium (Rosuvastatin Calcium 10 Mg Tab) 10 mg PO QAM [facility] Stop: 09/27/22 08:59 Last Admin: 08/29/22 08:15 Dose: 10 mg
[2022-08-29] MEDS: MULTIVITAMIN CHEWABLE TAB PO SCH (12:20)
[2022-08-29 16:45] LABS: Anion Gap 3.7 (3-11)
--- NOTE | 2022-08-29 17:43 | Hospitalist Progress Note ---
Date of Service August 29, 2022 Assessment & Plan (1) Atrial fibrillation with rapid ventricular response: Plan: 71 year old female with history of CAD, A fib s/p Watchman Device, follows with [facility] Renzo, presenting with A fib in RVR after elective outpatient hemorrhoidectomy procedure. A FIB IN RVR HISTORY OF CHRONIC A FIB, S/P WATCHMAN DEVICE HISTORY OF CAD occurred post procedure- elective hemorrhoidectomy usually on Metoprolol 25mg BID, ASA 81mg po daily electrolytes, TSH ok continue Diltiazem drip continue usual Metoprolol 25mg po BID (with holding parameters) Cardizem drip ASA 81mg po daily Echo NPO post midnight Cardiology consulted 08/29 Converted to sinus rhythm yesterday morning Cardizem drip discontinued No further medication changes per cardiology service Metoprolol decreased to 12.5 mg p.o. twice daily secondary to bradycardia Monitor closely Continue aspirin STATUS POST ELECTIVE HEMORRHOIDECTOMY No signs of bleeding Tylenol 1 g 3 times daily Developed generalized itching with Percocet, NSAIDs contraindicated secondary to history of bypass surgery, tramadol also contraindicated as patient is taking Lexapro Continue to monitor closely MDD Resume Lexapro History of tremors continue Primidone, Ativan CHRISSY Patient does not use CPAP at home HISTORY OF HYPOTENSION on Midodrine DVT prophylaxis SCDs for now Full Code Disposition anticipate d/c home tomorrow when medically stable Admission and Anticipated Discharge Date Admission Date: August 27, 2022 Subjective Follow-up for A. fib, etc. Seen resting in bed, comfortable, not in distress Heart rate in the 50s this morning, symptomatic States she feels tired today, somewhat shaky no chest pain, dyspnea, palpitations, dizziness No other symptoms Review of Systems Review of Systems: all noted and negative except for above Physical Exam Physical Exam: General- oriented x 3, not in distress, speaks in sentences with no effort or accessory muscle use Eyes- anicteric Neck- no JVD Lungs- clear breath sounds bilaterally, no rales/wheezes Heart- normal rate, regular rhythm; no murmurs Abdomen- normal bowel sounds, nondistended, soft, nontender Extremities- no pretibial edema, no calf tenderness Neuro- alert, oriented x 3; no gross focal neurologic deficits Skin- warm & dry Results & Data Results & Data ([facility]) Vital Signs (Past 12 Hours) Vital Signs Temp Pulse Pulse Resp BP Pulse Ox O2 Del Method 08/29/22 15:28 36.4 C L 48 L 18 106/70 94 Room Air 08/29/22 12:09 36.8 C 47 L 19 145/76 H 95 Room Air 08/29/22 10:43 44 L 08/29/22 10:43 Room Air 08/29/22 07:47 36.4 C L 50 L 18 123/69 98 Room Air all noted and reviewed including below
[2022-08-30] MEDS: ACETAMINOPHEN 500 MG TAB PO SCH ×3 (05:49→22:23)
[2022-08-30] MEDS: ESCITALOPRAM OXALATE 20 MG TAB PO SCH (08:43)
[2022-08-30] MEDS: PANTOprazole 40 MG TAB PO SCH (08:43)
[2022-08-30] MEDS: MIDODRINE HCL 2.5 MG TAB PO SCH ×2 (08:44→20:27)
[2022-08-30] MEDS: PRIMIDONE 50 MG TAB PO SCH ×2 (08:44→20:28)
[2022-08-30] MEDS: MULTIVITAMIN CHEWABLE TAB PO SCH (08:44)
[2022-08-30] MEDS: ASPIRIN 81 MG ECTAB PO SCH (08:45)
[2022-08-30] MEDS: FAMOTIDINE 20 MG TAB PO SCH (08:45)
[2022-08-30] MEDS: METOPROLOL TARTRATE 25 MG TAB PO SCH ×2 (08:45→20:28)
[2022-08-30] MEDS: ROSUVASTATIN CALCIUM 10 MG TAB PO SCH (08:46)
[2022-08-30] MEDS: POLYETHYLENE (MIRALAX) 17 GM PACK PO SCH (08:46)
[2022-08-30] MEDS: LORazepam 0.5 MG TAB PO SCH ×3 (08:50→20:20)
--- NOTE | 2022-08-30 09:19 | Cardiology Progress Note ---
Date of Service August 30, 2022 Assessment & Plan (1) Atrial fibrillation with rapid ventricular response: (2) History of coronary artery disease: (3) Presence of Watchman left atrial appendage closure device: Plan The patient's heart rates are better today. I would continue her on her current dose of metoprolol. From a cardiac standpoint I believe she can be discharged to outpatient follow-up. I will arrange follow-up with our clinic. Admission and Anticipated Discharge Date Admission Date: August 27, 2022 Subjective The patient has no new cardiac complaints today. Review of Systems Review of Systems: Review of Systems: See HPI for pertinent positives. All other 10 point review of systems are negative. Physical Exam Physical Exam: General: no acute distress and stated age Head: normocephalic, no masses, lesions, tenderness or abnormalities Eyes: conjunctiva are pink and non-injected, sclera clear Neck: supple, no adenopathy, no bruits, normal jugular venous pulse, no hepatojugular reflux Chest: normal shape and normal respiratory effort Lungs: clear to auscultation and percussion Cardiac Exam: - regular rate & rhythm, no murmurs gallops or rubs - normal S1, normal S2 Pulses: 2(+) throughout Abdomen: abdomen soft, non-tender, no abnormal masses and no hepatosplenomegaly Musculoskeletal: no gait disturbance, no joint inflammation, no deforming arthritis Extremities: no edema and no cyanosis Neuro: grossly normal exam Results & Data ([facility]) Vital Signs (Past 12 Hours) Vital Signs Temp Pulse Pulse Resp BP Pulse Ox O2 Del Method 08/30/22 07:15 36.7 C 53 L 18 137/82 96 Room Air 08/30/22 05:23 55 L 08/30/22 04:00 36.5 C 56 L 18 108/66 95 Room Air 08/29/22 23:00 36.6 C 51 L 18 116/70 94 Room Air Laboratory Results Laboratory Results - last 24 hr 08/29/22 07:03 Sodium 142 Anion Gap 3.7 Medications Administered Current Inpatient Medications Acetaminophen (Acetaminophen 500 Mg Tab) 1,000 mg PO Q8H SHELBIE Stop: 09/27/22 14:14 Last Admin: 08/30/22 05:49 Dose: 1,000 mg Aspirin (Aspirin 81 Mg Ectab) 81 mg PO QAM SHELBIE Stop: 09/27/22 08:59 Last Admin: 08/30/22 08:45 Dose: 81 mg Escitalopram Oxalate (Escitalopram Oxalate 20 Mg Tab) 20 mg PO DAILY SHELBIE Stop: 09/27/22 14:14 Last Admin: 08/30/22 08:43 Dose: 20 mg Famotidine (Famotidine 20 Mg Tab) 20 mg PO DAILY SHELBIE Stop: 09/27/22 08:59 Last Admin: 08/30/22 08:45 Dose: 20 mg Hydrocortisone (Hydrocortisone Hc 2.5% Crm 30gm Tube) 1 appln EXT BID PRN PRN Reason: Hemorrhoids Stop: 09/27/22 15:28 Last Admin: 08/29/22 20:10 Dose: 1 appln Promethazine HCl 12.5 mg/ (Sodium Chloride) 50.5 mls @ 202 mls/hr IV Q6H PRN PRN Reason: Nausea And Vomiting Stop: 09/26/22 19:40 Lorazepam (Lorazepam 0.5 Mg Tab) 0.5 mg PO TID SHELBIE Stop: 09/27/22 13:59 Last Admin: 08/30/22 08:50 Dose: 0.5 mg Metoprolol Tartrate (Metoprolol Tartrate 25 Mg Tab) 12.5 mg PO BID SHELBIE Stop: 09/28/22 20:59 Last Admin: 08/30/22 08:45 Dose: 12.5 mg Midodrine (Midodrine Hcl 2.5 Mg Tab) 5 mg PO BID SHELBIE Stop: 09/26/22 20:59 Last Admin: 08/30/22 08:44 Dose: 5 mg Multivitamins/Folic Acid/Vitamin C (Multivitamin Chewable Tab) 1 tab PO QAM SHELBIE Stop: 09/28/22 11:59 Last Admin: 08/30/22 08:44 Dose: 1 tab Pantoprazole Sodium (Pantoprazole 40 Mg Tab) 40 mg PO DAILY [facility]; Protocol Stop: 09/27/22 08:59 Last Admin: 08/30/22 08:43 Dose: 40 mg Phenylephrine HCl (Anusol Supp 1 Ea) 1 supp [place] DAILY PRN PRN Reason: pain Stop: 09/27/22 14:14 Polyethylene Glycol (Polyethylene (Miralax) 17 Gm Pack) 17 gm PO DAILY SHELBIE Stop: 09/27/22 08:59 Last Admin: 08/30/22 08:46 Dose: Not Given Primidone (Primidone 50 Mg Tab) 50 mg PO BID [facility] Stop: 09/26/22 20:59 Last Admin: 08/30/22 08:44 Dose: 50 mg Rosuvastatin Calcium (Rosuvastatin Calcium 10 Mg Tab) 10 mg PO QAM [facility] Stop: 09/27/22 08:59 Last Admin: 08/30/22 08:46 Dose: 10 mg
--- NOTE | 2022-08-30 12:25 | Hospitalist Progress Note ---
Date of Service August 30, 2022 Assessment & Plan (1) Atrial fibrillation with rapid ventricular response: Plan: 71 year old female with history of CAD, A fib s/p Watchman Device, follows with [facility] Renzo, presenting with A fib in RVR after elective outpatient hemorrhoidectomy procedure. A FIB IN RVR HISTORY OF CHRONIC A FIB, S/P WATCHMAN DEVICE HISTORY OF CAD occurred post procedure- elective hemorrhoidectomy usually on Metoprolol 25mg BID, ASA 81mg po daily electrolytes, TSH ok Given diltiazem drip Given usual Metoprolol 25mg po BID (with holding parameters), ASA 81mg po daily Echo: Left ventricular systolic function normal, EF 55 to 60% Right ventricular systolic function normal Mild mitral regurgitation Moderate tricuspid vegetation Moderate to severe mitral annular calcification Left atrium severely dilated Right atrium is mild to moderately dilated 10 Converted to sinus rhythm 2 nights ago Cardizem drip discontinued Metoprolol decreased to 12.5 mg p.o. twice daily secondary to bradycardia Monitor closely Continue aspirin STATUS POST ELECTIVE HEMORRHOIDECTOMY No signs of bleeding Tylenol 1 g 3 times daily Developed generalized itching with Percocet, NSAIDs contraindicated secondary to history of bypass surgery, tramadol also contraindicated as patient is taking Lexapro Patient still having pain, intermittent bleeding per rectum Will consult general surgery evaluation MDD Continue Lexapro History of tremors continue Primidone, Ativan CHRISSY Patient does not use CPAP at home HISTORY OF HYPOTENSION on Midodrine DVT prophylaxis SCDs for now in light of intermittent rectal bleeding Ambulation encouraged Full Code Disposition PT and OT evaluation anticipate d/c home tomorrow when medically stable Admission and Anticipated Discharge Date Admission Date: August 27, 2022 Subjective Follow-up for atrial fibrillation RVR episode, etc. Seen resting in bed, comfortable, watching TV In good spirits States she feels okay overall No chest pain, shortness of breath, palpitations [place] tired walking to the bathroom today Still having some perirectal pain, some drops of blood observed this morning No fevers or chills No other symptom Review of Systems Review of Systems: all noted and negative except for above Physical Exam Physical Exam: General- oriented x 3, not in distress, speaks in sentences with no effort or accessory muscle use Eyes- anicteric Neck- no JVD Lungs- clear breath sounds bilaterally, no rales, no wheezing bilaterally Heart- normal rate, regular rhythm; no murmurs Abdomen- normal bowel sounds, nondistended, soft, no tenderness Extremities- no pretibial edema, no calf tenderness Neuro- alert, oriented x 3; no gross focal neurologic deficits Rectal-external hemorrhoids, nonbleeding Skin- warm & dry Results & Data Results & Data ([facility]) Vital Signs (Past 12 Hours) Vital Signs Temp Pulse Pulse Resp BP Pulse Ox O2 Del Method 08/30/22 10:45 55 L 08/30/22 10:45 Room Air 08/30/22 07:15 36.7 C 53 L 18 137/82 96 Room Air 08/30/22 05:23 55 L 08/30/22 04:00 36.5 C 56 L 18 108/66 95 Room Air all noted and reviewed including below
[2022-08-30] MEDS ORDERED: traMADol HCL 50 MG TABLET PO PRN (13:15)
--- NOTE | 2022-08-30 13:26 | Surgery Consultation ---
Date of Consultation August 30, 2022 Assessment & Plan (1) Hemorrhoids: She can try Ultram and lidocaine jelly. Follow-up with Dr. Joya as planned. History of Present Illness Attending Physician: Blanco Peguero MD History of Present Illness 71 y/o female had hemorrhoidectomy on Aug [address] [place] [address] Joya. She went into [facility] during or after the procedure and was eventually transferred to [facility] from PACU. She has had a few small drops or smears of blood. We were asked to see her for pain management. She had itching after given oxycodone while admitted. Allergies Allergy/AdvReac Type Severity Reaction Status Date / Time oxycodone Allergy Intermediate Unknown Verified 08/28/22 08:34 codeine Allergy Unknown HEART RACES Verified 08/27/22 19:17 erythromycin base Allergy Unknown Hives Verified 08/27/22 19:17 nitrofurantoin Allergy Unknown ? HIVES Verified 08/27/22 19:17 KERRY Inhibitors AdvReac Unknown Verified 08/27/22 19:18 Home Medications Medication Instructions Recorded Confirmed Type aspirin 81 mg tablet,delayed 81 mg PO QAM 03/18/22 08/27/22 History release metoprolol tartrate 25 mg tablet 25 mg PO BID 03/18/22 08/27/22 History midodrine 5 mg tablet 5 mg PO BID 03/18/22 08/27/22 History primidone 50 mg tablet 50 mg PO BID 03/18/22 08/27/22 History rosuvastatin 10 mg tablet 10 mg PO QAM 03/18/22 08/27/22 History famotidine 20 mg tablet (Pepcid) 20 mg PO HS 04/14/22 08/27/22 History lorazepam 0.5 mg tablet 0.5 mg PO TID 04/14/22 08/27/22 History omeprazole 40 mg capsule,delayed 40 mg PO DAILY 04/14/22 08/27/22 History release acetaminophen 500 mg tablet 500 - 1,000 mg PO Q6H PRN Pain 08/27/22 08/27/22 History (Tylenol Extra Strength) ammonium lactate 12 % topical cream 1 applic topical DIRECTED 08/27/22 08/27/22 History buspirone 10 mg tablet 10 mg PO DIRECTED 08/27/22 08/27/22 History calcium citrate 315 mg-vitamin D3 1 tab PO DAILY 08/27/22 08/27/22 History 5 mcg (200 unit) tablet (Calcium Citrate + D) cholecalciferol (vitamin D3) 25 25 mcg PO DAILY 08/27/22 08/27/22 History mcg (1,000 unit) tablet (Vitamin D3) cholestyramine (with sugar) 4 gram 1 ea PO BID 08/27/22 08/27/22 History powder for susp in a packet cyanocobalamin (vitamin B-12) 1,000 mcg IM MO 08/27/22 08/27/22 History 1,000 mcg/mL injection solution escitalopram oxalate 10 mg tablet 20 mg PO DAILY 08/27/22 08/27/22 History (Lexapro) ferrous sulfate 325 mg (65 mg 325 mg PO DAILY 08/27/22 08/27/22 History iron) tablet (Iron (ferrous sulfate)) ondansetron HCl 4 mg tablet 4 mg PO TID PRN Nausea 08/27/22 08/27/22 History oxybutynin chloride 10 mg 10 mg PO HS 08/27/22 08/27/22 History tablet,extended release 24 hr oxycodone-acetaminophen 5 mg-325 1 tab PO Q6H PRN Pain 08/27/22 08/27/22 History mg tablet (Percocet) promethazine 25 mg tablet 25 mg PO Q6H PRN Nausea 08/27/22 08/27/22 History Patient History Medical History Acid reflux Afib DX 2 YR AGO - NO HX CARDIOVERSION Anxiety and depression Arthritis Diarrhea REASON FOR UPCOMING PROCEDURES Encounter for pre-operative examination Hiatal hernia History of blood clots S/P HEART CATH - RIGHT ARM History of colon polyps BENIGN History of GI bleed 2 YR AGO History of heart attack 2 YR AGO - STENT X1 History of kidney stones Nausea REASON FOR UPCOMING PROCEDURES Orthostatic hypotension Stomach pain REASON FOR UPCOMING PROCEDURES Stomach ulcer Tic TIC - LIPS GO FUNNY...FOLLOWS NEURO [place] ? NAME, REASON FOR PRIMIDONE Surgical History History of cardiac cath 2 YR AGO, NE...STENT X1 [place] History of cholecystectomy History of colonoscopy MOST RECENT WAS TOLD COULD NOT GET UP INTO THE LEFT SIDE (ALTOONA 2 YR AGO) History of gastric surgery GASTRIC SLEEVE History of hysterectomy History of right hip replacement History of surgery WATCHMANS DEVICE PLACEMENT History of surgery FOR HIATAL HERNIA REPAIR History of total right knee replacement Family History Daughter Family history of colon cancer Grandmother Family history of colon cancer Social History Smoking Status: Never smoker Hx Alcohol Use: No Hx Substance Use: Yes Substance Use Type Other:: medical marijuana Preferred Language: [place] Communication Ability: Effective Jail Manager Required: No Beliefs That Will Affect Care: None Current Living Situation: Spouse and Family Current Living Situation Comment: lives with and grandson Other Information That Helps Us Care for You: No Feels Safe at Home: Yes Safety Concerns: Feels Safe At This Time Assistive Devices: Cane Review of Systems Gastrointestinal: no change in bowel habits Physical Exam Constitutional: WD/WN, vitals as above Results & Data ([facility]) Vital Signs (Past 12 Hours) Vital Signs Temp Pulse Pulse Resp BP Pulse Ox O2 Del Method 08/30/22 12:24 36.7 C 80 18 108/72 95 Room Air 08/30/22 10:45 55 L 08/30/22 10:45 Room Air 08/30/22 07:15 36.7 C 53 L 18 137/82 96 Room Air 08/30/22 05:23 55 L 08/30/22 04:00 36.5 C 56 L 18 108/66 95 Room Air PG Care Time/CCT Total # of Minutes Spent Total Time Spent with Patient: Total time spent is greater than 50% in coordination of care (as documented) at patient's floor/unit and/or counseling patient: Coding Level of Care Code 58376 Initial Inpt Care Lvl 1 Diagnoses Hemorrhoids K64.9
[2022-08-30] MEDS: LIDOCAINE 2% JELLY 5 ML TUBE EXT PRN (20:50)
[2022-08-30] MEDS ORDERED: HYDROCODONE/ACETAMOPHEN 5/325MG TAB PO PRN (20:59)
[2022-08-30] MEDS ORDERED: ACETAMINOPHEN 325 MG TAB PO PRN (22:27)
[2022-08-31] MEDS: METOPROLOL TARTRATE 25 MG TAB PO SCH (08:11)
[2022-08-31] MEDS: ROSUVASTATIN CALCIUM 10 MG TAB PO SCH (08:12)
[2022-08-31] MEDS: PANTOprazole 40 MG TAB PO SCH (08:12)
[2022-08-31] MEDS: MIDODRINE HCL 2.5 MG TAB PO SCH (08:12)
[2022-08-31] MEDS: PRIMIDONE 50 MG TAB PO SCH (08:12)
[2022-08-31] MEDS: ASPIRIN 81 MG ECTAB PO SCH (08:13)
[2022-08-31] MEDS: ESCITALOPRAM OXALATE 20 MG TAB PO SCH (08:13)
[2022-08-31] MEDS: FAMOTIDINE 20 MG TAB PO SCH (08:13)
[2022-08-31] MEDS: MULTIVITAMIN CHEWABLE TAB PO SCH (08:13)
[2022-08-31] MEDS: POLYETHYLENE (MIRALAX) 17 GM PACK PO SCH (08:14)
[2022-08-31] MEDS: LORazepam 0.5 MG TAB PO SCH ×2 (08:18→13:58)
[2022-08-31] MEDS: LIDOCAINE 2% JELLY 5 ML TUBE EXT PRN ×2 (08:18→15:10)
--- NOTE | 2022-08-31 19:43 | Discharge Summary ---
Discharge Summary Date of Service August 31, 2022 Notes For Next Care Provider Metoprolol decreased from 25 to 12.5 mg p.o. twice daily for bradycardia, low 50s Warwick prescribed for severe pain Hydrocortisone cream and lidocaine jelly prescribed twice daily for external hemorrhoid pain Medication Changes From Visit Per above Admission HPI Per Admitting Provider 71 year old female with history of CAD, A fib s/p Watchman Device, follows with [facility], presenting with A fib in RVR after elective outpatient hemorrhoidectomy procedure. Patient was in SR before the start of the procedure. Conscious sedation was performed. After the procedure, patient was noted to be in A fib RVR. Esmolol and Metoprolol IV given with persistent A fib. Patient transferred to the ER. At the ER, patient was given Diltiazem drip. HR improved from 133 to 99. Hospitalist consulted for admission. On exam, patient seen resting in bed, comfortable, not in distress. no chest pain, dyspnea, palpitations, dizziness no bleeding per rectum no nausea/vomiting, abd pain, feve/chills no headache, dizziness no other symptoms Admission Exam Per Admitting Provider General- oriented x 3, not in distress, speaks in sentences with no effort or accessory muscle use Head- atraumatic Eyes- PERRL, EOMI, anicteric ENT- oropharynx clear Neck- supple, no JVD, no adenopathy, no thyromegaly; carotids +2/2, no bruits appreciated Lungs- clear to auscultation bilaterally, no rales/wheezes Heart- HR 90s, Irregularly irregular; no murmur, no gallop, no rub appreciated Abdomen- normal bowel sounds, nondistended, soft, nontender, no masses or hepatosplenomegaly Extremities- no pretibial edema, no calf tenderness; peripheral pulses intact Neuro- alert, oriented x 3; CN 2-12 grossly intact; motor 5/5 bilaterally;sensation 100% on all extremities; no other gross focal neurologic deficits Skin- warm & dry Principal Dx & Hospital Course #1 = Principal Diagnosis (1) Atrial fibrillation with rapid ventricular response: (2) Hemorrhoids: (1) Atrial fibrillation with rapid ventricular response: Plan: 71 year old female with history of CAD, A fib s/p Watchman Device, follows with [facility], presenting with A fib in RVR after elective outpatient hemorrhoidectomy procedure. A FIB IN RVR HISTORY OF CHRONIC A FIB, S/P WATCHMAN DEVICE HISTORY OF CAD occurred post procedure- elective hemorrhoidectomy usually on Metoprolol 25mg BID, ASA 81mg po daily electrolytes, TSH ok Given diltiazem drip Given usual Metoprolol 25mg po BID (with holding parameters), ASA 81mg po daily Echo: Left ventricular systolic function normal, EF 55 to 60% Right ventricular systolic function normal Mild mitral regurgitation Moderate tricuspid vegetation Moderate to severe mitral annular calcification Left atrium severely dilated Right atrium is mild to moderately dilated 08/[address] Martinez consulted Converted to sinus rhythm on hospital day #2 Cardizem drip discontinued Metoprolol decreased to 12.5 mg p.o. twice daily secondary to bradycardia Monitor closely Continue aspirin Follow-up with cardiology in 1 to 2 weeks STATUS POST ELECTIVE HEMORRHOIDECTOMY No signs of bleeding Tylenol 1 g 3 times daily Developed generalized itching with Percocet, NSAIDs contraindicated secondary to history of bypass surgery, tramadol also contraindicated as patient is taking Lexapro Patient still having pain, intermittent bleeding per rectum Consulted general surgery evaluation-recommend pain control, follow-up with general surgeon as an outpatient Patient reports pain level 8 out of 10, Warwick given, with relief Requesting to be prescribed Warwick to be used at home, warned of side effects including dizziness, drowsiness especially she is taking as needed Ativan as well Made aware that if she develops the symptoms, DC Warwick immediately and call primary care physician Also advised to ambulate carefully, always use her rolling walker to prevent falls Patient verbalized understanding and agreement MDD Continue Lexapro History of tremors continue Primidone, Ativan CHRISSY Patient does not use CPAP at home HISTORY OF HYPOTENSION on Midodrine DVT prophylaxis SCDs for now in light of intermittent rectal bleeding Ambulation encouraged Full Code Disposition Discharge to home Follow-up with PCP in 1 week Follow-up with general surgery in 1 week Discharge Exam General- oriented x 3, not in distress, speaks in sentences with no effort or accessory muscle use Eyes- anicteric Neck- no JVD Lungs- clear breath sounds bilaterally, no rales/wheezes Heart- normal rate, regular rhythm; no murmurs Abdomen- normal bowel sounds, nondistended, soft, nontender Extremities- no pretibial edema, no calf tenderness Neuro- alert, oriented x 3; no gross focal neurologic deficits Skin- warm & dry Updated Medication List Medication Instructions Recorded Confirmed Type aspirin 81 mg tablet,delayed 81 mg PO QAM 03/18/22 08/27/22 History release midodrine 5 mg tablet 5 mg PO BID 03/18/22 08/27/22 History primidone 50 mg tablet 50 mg PO BID 03/18/22 08/27/22 History rosuvastatin 10 mg tablet 10 mg PO QAM 03/18/22 08/27/22 History famotidine 20 mg tablet (Pepcid) 20 mg PO HS 04/14/22 08/27/22 History lorazepam 0.5 mg tablet 0.5 mg PO TID 04/14/22 08/27/22 History omeprazole 40 mg capsule,delayed 40 mg PO DAILY 04/14/22 08/27/22 History release ammonium lactate 12 % topical cream 1 applic topical DIRECTED 08/27/22 08/27/22 History buspirone 10 mg tablet 10 mg PO DIRECTED 08/27/22 08/27/22 History calcium citrate 315 mg-vitamin D3 1 tab PO DAILY 08/27/22 08/27/22 History 5 mcg (200 unit) tablet (Calcium Citrate + D) cholecalciferol (vitamin D3) 25 25 mcg PO DAILY 08/27/22 08/27/22 History mcg (1,000 unit) tablet (Vitamin D3) cholestyramine (with sugar) 4 gram 1 ea PO BID 08/27/22 08/27/22 History powder for susp in a packet cyanocobalamin (vitamin B-12) 1,000 mcg IM MO 08/27/22 08/27/22 History 1,000 mcg/mL injection solution escitalopram oxalate 10 mg tablet 20 mg PO DAILY 08/27/22 08/27/22 History (Lexapro) ferrous sulfate 325 mg (65 mg 325 mg PO DAILY 08/27/22 08/27/22 History iron) tablet (Iron (ferrous sulfate)) ondansetron HCl 4 mg tablet 4 mg PO TID PRN Nausea 08/27/22 08/27/22 History oxybutynin chloride 10 mg 10 mg PO HS 08/27/22 08/27/22 History tablet,extended release 24 hr acetaminophen 325 mg tablet 650 mg PO Q8H PRN fever or pain 08/31/22 Rx (Tylenol) #30 tabs hydrocodone 5 mg-acetaminophen 325 1 tab PO BID PRN severe pain 08/31/22 Rx mg tablet (scale score 7-10) #8 tabs hydrocortisone 2.5 % topical cream 1 applic EXT BID PRN hemorrhoids 7 08/31/22 Rx with perineal applicator days #30 grams (Proctosol HC) lidocaine HCl 2 % mucosal jelly 5 ml EXT Q12H PRN pain 7 days #30 08/31/22 Rx mL metoprolol tartrate 25 mg tablet 12.5 mg PO BID 30 days #30 tabs 08/31/22 Rx Hospital Stay Data Consultations 08/27/22 15:55 ED Decision to Admit Stat 08/27/22 18:21 HIM [Consult Health Information Management] Stat 08/27/22 19:41 Consult Cardiology Routine 08/30/22 12:25 Consult General Surgery Routine Pending Results Patient Have Any Pending Studies at Discharge: No Discharge Instructions Given to Patient (Per Discharging Provider) PLEASE REFER TO YOUR NEW MEDICATION LIST AND FOLLOW INSTRUCTIONS CAREFULLY. YOUR NEW MEDICATIONS INCLUDE: Decrease your metoprolol from 25 mg to 12.5 mg twice a day. You may use Warwick as needed only for severe pain. Please stop this medication immediately if you are having dizziness, sleepiness, confusion. Do not take Promethazine while taking Warwick. You can also take Tylenol 650mg every 8 hours as needed for [id number] pain. Always drink plenty of fluids per day and maintain well-hydrated. Always ambulate carefully to prevent falls. PLEASE CALL YOUR PRIMARY CARE PHYSICIAN OR RETURN TO THE ER IF WITH WORSENING OF SYMPTOMS, INCLUDING Worsening of rectal pain, bleeding, discharge, fevers or chills, chest pain, shortness of breath, palpitations, dizziness. FOLLOW UP WITH PRIMARY CARE PHYSICIAN in 1 week. Follow-up with general surgeon as scheduled. Follow-up with animal shelter manager in 2 weeks. Please call his office for an appointment. Contact information outlined above Total Time Total Time Spent Total Time Spent (In Minutes): >30 minutes
== END 2022-08-31 17:35 | disposition home or self-care (01) | DRG 309 ==
LOC: ED 14:01 → 2S 16:29